=== PATIENT | male | born 1960 | race Asian ===

== ENCOUNTER 2017-03-04 11:10 | Observation (INO) | payer OTHER ==
[2017-03-04] MEDS ORDERED: ONDANSETRON 4 MG/2 ML VIAL IVP STA (11:28)
[2017-03-04] MEDS ORDERED: SODIUM CHLORIDE 0.9% 1,000 ML IV ONE ×2 (11:30→12:18)
[2017-03-04] MEDS ORDERED: ONDANSETRON 4 MG/2 ML VIAL ONE (11:39)
--- NOTE | 2017-03-04 12:05 | ED Physician Documentation ---
PD HPI ABD PAIN - Stated complaint Stated Complaint: VOMITING/ABD PX - Chief complaint Chief Complaint: Abd Pain - History obtained from History obtained from: Patient - History of Present Illness Timing - onset: Last night Timing - duration: Hours (12) Timing - details: Abrupt onset, Still present Quality: Cramping, Aching, Fullness/distended, Pain Location: Epigastric, Other (upper abd) Radiation: No: Chest, Lower back, Upper back Improved by: Vomiting. No: Position Worsened by: Eating, Palpation. No: Position Associated symptoms: Nausea, Vomiting, Loss of appetite. No: Fever, Hematemesis , Diarrhea, Constipation, Near syncope / syncope Similar symptoms before: Has not had sx before Recently seen: Not recently seen Review of Systems Constitutional: denies: Fever, Chills Nose: denies: Rhinorrhea / runny nose, Congestion Throat: denies: Sore throat Cardiac: denies: Chest pain / pressure, Palpitations Respiratory: denies: Dyspnea, Cough, Wheezing GI: reports: Abdominal Pain, Nausea, Vomiting. denies: Diarrhea, Hematemesis, Bloody / black stool : denies: Dysuria Skin: denies: Rash Musculoskeletal: denies: Neck pain, Back pain Neurologic: reports: Generalized weakness. 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 : None Psych: None Other Past Medical History: gout - Past Surgical History Past Surgical History: Yes General: Other (inguinal hernia repair remote past) - Present Medications Home Medications: Ambulatory Orders Medication Instructions Recorded Confirmed No Known Home Medications [No 03/04/17 03/04/17 Known Home Medications] - Allergies Allergies/Adverse Reactions: Allergies Allergy/AdvReac Type Severity Reaction Status Date / Time No Known Drug Allergies Allergy Verified 05/07/15 21:47 - Social History Does the pt smoke?: No Smoking Status: Never smoker Does the pt drink ETOH?: No Does the pt have substance abuse?: No - Family History Family history: reports: Non contributory - Immunizations Immunizations are current?: Yes - POLST Patient has POLST: No PD ED PE NORMAL - Vitals Vital signs reviewed: Yes - General General: Alert and oriented X 3, Well developed/nourished, Other (does appear uncomfortable. ) - HEENT HEENT: PERRL (nonicteric), Pharynx benign - Neck Neck: Supple, no meningeal sign, No adenopathy - Cardiac Cardiac: RRR, No murmur - Respiratory Respiratory: Clear bilaterally - Abdomen Abdomen: No organomegaly, Other (some fullness of abdomen upper abd, with epigastric and upper abd tenderness (negative [place] signs though). Lower abd not tender. ). No: Normal bowel sounds (slightly increased) - Male Male : Other (no inguinal hernias nor scrotal tenderness. ) - Rectal Rectal: Deferred - Back Back: No CVA TTP - Derm Derm: Normal color - Extremities Extremities: No deformity, Normal ROM s pain, No edema, No calf tenderness / cord - Neuro Neuro: Alert and oriented X 3, No motor deficit, Normal speech - Psych Psych: Normal mood, Normal affect Results - Vitals Vitals: Vital Signs - 24 hr 03/04/17 03/04/17 03/04/17 11:14 12:44 14:05 Temperature 35.3 C L Heart Rate 65 65 66 Respiratory 18 18 18 Rate Blood Pressure 152/94 H 129/83 H 140/75 H O2 Saturation 99 97 97 03/04/17 15:04 Temperature Heart Rate 68 Respiratory 18 Rate Blood Pressure 136/82 H O2 Saturation 97 Oxygen O2 Source Room air - Labs Labs: Laboratory Tests 03/04/17 03/04/17 03/04/17 13:38 13:38 15:13 WBC 20.0 H RBC 4.65 L Hgb 14.2 Hct 43.4 MCV 93.4 MCH 30.6 MCHC 32.7 RDW 14.3 Plt Count 181 MPV 8.7 Neut # 16.9 H Lymph # 1.9 [place] # 1.1 H Eos # 0.1 Baso # 0.1 Absolute Nucleated RBC 0.00 Nucleated RBCs 0.0 Sodium 138 Potassium 4.2 Chloride 106 Carbon Dioxide 26 Anion Gap 6.0 BUN 14 Creatinine 0.9 Estimated GFR (MDRD) 87 L Glucose 105 H Lactic Acid 1.3 Calcium 8.2 L Total Bilirubin 0.8 AST 23 ALT 22 Alkaline Phosphatase 45 Total Protein 6.8 Albumin 3.9 Globulin 2.9 Albumin/Globulin Ratio 1.3 Lipase 25 - Rads (name of study) abd/pelvic CT Radiology: Prelim report reviewed (Small bowel enteritis with partial SBO. NO free fluid nor perforation) PD MEDICAL DECISION MAKING - ED course Complexity details: re-evaluated patient (feeling less pain with meds. Still upper abd tender with mild distension. Awaiting CT. ), considered differential ( Labs to look for pancreas/liver, he had abd pain and vomiting with some fullness , so consider obstruction or perforation. Will get CT. ), d/w patient, d/w business systems consultant (Dr. Nicholson, Surgery, who saw patient and CT and referred to medicine, then Dr. Cheema, Hospitalist.) Departure - Departure Disposition: 66 [facility] DC/Xfer Clinical Impression: Partial small bowel obstruction, Enteritis Abdominal pain Qualifiers: Abdominal location: upper abdomen, unspecified Qualified Code(s): R10.10 - Upper abdominal pain, unspecified Vomiting Qualifiers: Vomiting type: unspecified Vomiting Intractability: non-intractable Nausea presence: with nausea Qualified Code(s): R11.2 - Nausea with vomiting, unspecified Condition: Stable Record reviewed to determine appropriate education?: Yes Discharge Date/Time: 03/04/17 16:07
[2017-03-04] MEDS ORDERED: HYDROmorphone 1 MG/ML SYRINGE IVP STA (12:17)
[2017-03-04] MEDS ORDERED: HYDROmorphone 1 MG/ML SYRINGE ONE (12:32)
[2017-03-04 13:48] LABS: BASOPHILS # (AUTO) 0.1 10^3/uL (0.0-0.1); BASOPHILS % (AUTO) 0.5 %; EOSINOPHILS # (AUTO) 0.1 10^3/uL (0.0-0.7); EOSINOPHILS % (AUTO) 0.5 %; HCT - HEMATOCRIT 43.4 % (42.0-52.0); HGB - HEMOGLOBIN 14.2 g/dL (14.0-18.0); LYMPHOCYTES # (AUTO) 1.9 10^3/uL (1.5-3.5); LYMPHOCYTES % (AUTO) 9.3 %; MEAN CORPUSCULAR HEMOGLOBIN 30.6 pg (27.0-31.0); MEAN CORPUSCULAR HGB CONC 32.7 g/dL (32.0-36.0); MEAN CORPUSCULAR VOLUME 93.4 fL (80.0-94.0); MEAN PLATELET VOLUME 8.7 fL (7.4-11.4); MONOCYTES # (AUTO) 1.1 10^3/uL (0.0-1.0); MONOCYTES % (AUTO) 5.3 %; NEUTROPHILS # (AUTO) 16.9 10^3/uL (1.5-6.6); NEUTROPHILS % (AUTO) 84.4 %; RED BLOOD COUNT 4.65 10^6/uL (4.70-6.10); RED CELL DISTRIBUTION WIDTH 14.3 % (12.0-15.0)
[2017-03-04 13:58] LABS: ALBUMIN/GLOBULIN RATIO 1.3 (1.0-2.2); BILIRUBIN,TOTAL 0.8 mg/dL (0.2-1.0); CALCIUM 8.2 mg/dL (8.5-10.3); CREATININE 0.9 mg/dL (0.6-1.2); POTASSIUM 4.2 mmol/L (3.5-5.0); TOTAL PROTEIN 6.8 g/dL (6.7-8.2)
[2017-03-04] MEDS ORDERED: IOPAMIDOL-300 100 ML VIAL IVP ONE (14:36)
--- NOTE | 2017-03-04 14:54 | CT Preliminary Report ---
Exam: CT Abdomen/Pelvis W/ IMPRESSION: 1. There is mildly dilated left abdomen small bowel with associated mesenteric edema. There is a smal l amount of free fluid within the paracolic gutters. Findings are suspicious for partial small bowel obstruction. Differential consideration would be enteritis. 2. No acute solid abdominal organ abnormalities are seen. [facility] SITE ID: [id number]
--- NOTE | 2017-03-04 14:56 | CT Report ---
EXAM: CT ABDOMEN AND PELVIS EXAM DATE: 03/04/2017 02:34 PM. CLINICAL HISTORY: Upper abd pain, distention since last night/ vomit. COMPARISONS: None. TECHNIQUE: Routine helical CT imaging was performed through the abdomen and pelvis. IV contrast: Yes. Enteric contrast: No. Reconstructions: Coronal and sagittal. In accordance with CT protocol optimization, one or more of the following dose reduction techniques w ere utilized for this exam: automated exposure control, adjustment of mA and/or KV based on patient s ize, or use of iterative reconstructive technique. FINDINGS: Lung Bases: Unremarkable. Liver: Normal. No masses. Gallbladder/Bile Ducts: Unremarkable. Spleen: Normal. Pancreas: Normal. Adrenal Glands: Normal. Kidneys: Rounded hypodensities within the kidneys likely represent cysts. No acute renal abnormalitie s are seen. Peritoneal Cavity/Bowel: Stomach demonstrates no acute abnormalities. There is mildly dilated small b owel within the left abdomen. There is mild adjacent mesenteric edema. No discrete transition point t o decompressed small bowel. The colon demonstrates no acute abnormalities. There are scattered coloni c diverticula. There are no enlarged mesenteric or retroperitoneal lymph nodes. There is some free fl uid within the right paracolic gutter. No intraperitoneal free air. The appendix is well visualized a nd normal. Pelvic Organs: Normal. The bladder and visualized pelvic organs are within normal limits. Vasculature: No aneurysms or other significant abnormality. Bones: No acute bony abnormalities are seen. Other: None. IMPRESSION: 1. There is mildly dilated left abdomen small bowel with associated mesenteric edema. There is a smal l amount of free fluid within the paracolic gutters. Findings are suspicious for partial small bowel obstruction. Differential consideration would be enteritis. 2. No acute solid abdominal organ abnormalities are seen. [facility] Referring Provider Line: [phone] SITE ID: [id number]
[2017-03-04] MEDS ORDERED: ONDANSETRON 4 MG/2 ML VIAL IVP PRN (15:38)
[2017-03-04] MEDS ORDERED: ACETAMINOPHEN 325 MG TABLET PO PRN (15:38)
[2017-03-04] MEDS ORDERED: SODIUM CHLORIDE FLUSH 0.9% 10 ML SYRINGE IVP PRN (15:38)
[2017-03-04] MEDS: SODIUM CHLORIDE 0.9% 1,000 ML IV SCH (16:43)
--- NOTE | 2017-03-04 18:43 | CONSULTATION NOTE ---
Surgery Consult - Admit Date Hospital Admission Date: 03/04/17 - Consult Date Consult Date: 03/04/17 Requesting Provider: ED attending - Home Meds/Allergies Home Medications: Patient History Medication Instructions Recorded Confirmed No Known Home Medications [No 03/04/17 03/04/17 Known Home Medications] Allergies/Adverse Reactions: Allergies Allergy/AdvReac Type Severity Reaction Status Date / Time No Known Drug Allergies Allergy Verified 05/07/15 21:47 - Consultation Note Consultation Note: PD HPI ABD PAIN - Stated complaint Stated Complaint: VOMITING/ABD PX - Chief complaint Chief Complaint: Abd Pain - History obtained from History obtained from: Patient - History of Present Illness 56 yo male relates a 1 day hx of nausea and vomiting followed by epigastric pain 8/10 non radiating, intermittent with normal bms. LBM today. Patient states he went to [employer] yesterday and was eating bul[place]ian food, then went to [employer] and had oysters & clam chowder and vomited later with abdominal pain so came to ED. Review of Systems Constitutional: denies: Fever, Chills Nose: denies: Rhinorrhea / runny nose, Congestion Throat: denies: Sore throat Cardiac: denies: Chest pain / pressure, Palpitations Respiratory: denies: Dyspnea, Cough, Wheezing GI: reports: Abdominal Pain, Nausea, Vomiting. denies: Diarrhea, Hematemesis, Bloody / black stool : denies: Dysuria Skin: denies: Rash Musculoskeletal: denies: Neck pain, Back pain Neurologic: reports: Generalized weakness. 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 : None Psych: None Other Past Medical History: gout - Past Surgical History Past Surgical History: Yes General: Right Inguinal hernia repair - Present Medications Home Medications: Ambulatory Orders Medication Instructions Recorded Confirmed No Known Home Medications [No 03/04/17 03/04/17 Known Home Medications] - Allergies Allergies/Adverse Reactions: Allergies Allergy/AdvReac Type Severity Reaction Status Date / Time No Known Drug Allergies Allergy Verified 05/07/15 21:47 - Social History Does the pt smoke?: No Smoking Status: Never smoker Does the pt drink ETOH?: No Does the pt have substance abuse?: No - Immunizations Immunizations are current?: Yes - POLST Patient has POLST: No PD ED PE NORMAL - Vitals Vital signs reviewed: Yes - General General: Alert and oriented X 3, Well developed/nourished, Other (does appear uncomfortable. ) - HEENT HEENT: PERRL (nonicteric), Pharynx benign - Neck Neck: Supple, no meningeal sign, No adenopathy - Cardiac Cardiac: RRR, No murmur - Respiratory Respiratory: Clear bilaterally - Abdomen Abdomen: + BS, soft, NT, ND, no rebound or guarding - Male Male : Other (no inguinal hernias nor scrotal tenderness. ) - Rectal Rectal: Deferred - Back Back: No CVA TTP - Derm Derm: Normal color - Extremities Extremities: No deformity, Normal ROM s pain, No edema, No calf tenderness / cord - Neuro Neuro: Alert and oriented X 3, No motor deficit, Normal speech - Psych Psych: Normal mood, Normal affect Results - Vitals Vitals: Vital Signs - 24 hr 03/04/17 03/04/17 03/04/17 11:14 12:44 14:05 Temperature 35.3 C L Heart Rate 65 65 66 Respiratory 18 18 18 Rate Blood Pressure 152/94 H 129/83 H 140/75 H O2 Saturation 99 97 97 03/04/17 15:04 Temperature Heart Rate 68 Respiratory 18 Rate Blood Pressure 136/82 H O2 Saturation 97 Oxygen O2 Source Room air - Labs Labs: Laboratory Tests 03/04/17 03/04/17 13:38 13:38 WBC 20.0 H RBC 4.65 L Hgb 14.2 Hct 43.4 MCV 93.4 MCH 30.6 MCHC 32.7 RDW 14.3 Plt Count 181 MPV 8.7 Neut # 16.9 H Lymph # 1.9 [place] # 1.1 H Eos # 0.1 Baso # 0.1 Absolute Nucleated RBC 0.00 Nucleated RBCs 0.0 Sodium 138 Potassium 4.2 Chloride 106 Carbon Dioxide 26 Anion Gap 6.0 BUN 14 Creatinine 0.9 Estimated GFR (MDRD) 87 L Glucose 105 H Calcium 8.2 L Total Bilirubin 0.8 AST 23 ALT 22 Alkaline Phosphatase 45 Total Protein 6.8 Albumin 3.9 Globulin 2.9 Albumin/Globulin Ratio 1.3 Lipase 25 03/04/17 CT scan ABD/P Partial obstruction vs enteritis A/P 56 yo male with abdominal pain, N/V with partial bowel obstruction vs enteritis Given recent hx of eating ou/ seafood/ hot weather, likely enteritis. Arthur non- surgical Recommend IV hydration. Primary medical team to manage.
[2017-03-04] MEDS: SODIUM CHLORIDE FLUSH 0.9% 10 ML SYRINGE IVP SCH (22:46)
[2017-03-05] MEDS: SODIUM CHLORIDE 0.9% 1,000 ML IV SCH (00:41)
[2017-03-05] MEDS: SODIUM CHLORIDE FLUSH 0.9% 10 ML SYRINGE IVP SCH (05:39)
[2017-03-05 05:47] LABS: CALCIUM 7.7 mg/dL (8.5-10.3); CREATININE 0.8 mg/dL (0.6-1.2); POTASSIUM 3.5 mmol/L (3.5-5.0)
[2017-03-05 05:55] LABS: BASOPHILS % (AUTO) 0.4 %; EOSINOPHILS # (AUTO) 0.2 10^3/uL (0.0-0.7); EOSINOPHILS % (AUTO) 3.3 %; HCT - HEMATOCRIT 38.4 % (42.0-52.0); HGB - HEMOGLOBIN 12.7 g/dL (14.0-18.0); LYMPHOCYTES # (AUTO) 1.8 10^3/uL (1.5-3.5); MEAN CORPUSCULAR HEMOGLOBIN 31.2 pg (27.0-31.0); MEAN CORPUSCULAR HGB CONC 33.2 g/dL (32.0-36.0); MEAN PLATELET VOLUME 9.1 fL (7.4-11.4); MONOCYTES # (AUTO) 0.5 10^3/uL (0.0-1.0); MONOCYTES % (AUTO) 7.3 %; NEUTROPHILS # (AUTO) 4.2 10^3/uL (1.5-6.6); RED BLOOD COUNT 4.08 10^6/uL (4.70-6.10); RED CELL DISTRIBUTION WIDTH 14.2 % (12.0-15.0); UNCORRECTED WHITE BLOOD COUNT 6.8 x10^3/uL; WHITE BLOOD COUNT 6.8 x10^3/uL (4.8-10.8)
--- NOTE | 2017-03-05 07:20 | HISTORY & PHYSICAL EXAMINATION ---
Chief Complaint - Chief Complaint Chief Complaint: PLEASE SEE DICTATED NOTE History - Past Medical History Cardiovascular: reports: Hypertension, High cholesterol Respiratory: reports: None Neuro: reports: None Endocrine/Autoimmune: reports: None GI: reports: None PATIENT BILLER: reports: None : reports: None Psych: reports: None MRSA Hx?: No Other Past Medical History: gout - Past Surgical History General: reports: Other (inguinal hernia repair remote past) - POLST Patient has POLST: No Meds/Allgy - Home Medications Home Medications: Ambulatory Orders Medication Instructions Recorded Confirmed No Known Home Medications [No 03/04/17 03/04/17 Known Home Medications] - Allergies Allergies/Adverse Reactions: Allergies Allergy/AdvReac Type Severity Reaction Status Date / Time No Known Drug Allergies Allergy Verified 05/07/15 21:47 Exam - Vital Signs Vital Signs: Vital Signs x48h Temp Pulse Resp BP Pulse Ox 03/05/17 05:00 36.7 C 71 16 107/62 96 03/04/17 23:47 36.8 C 68 14 111/68 98 Conclusion/Plan - Lab Results Lab results reviewed: Yes Fish Bones: 03/05/17 05:29 03/05/17 05:29 Issues/Core Measures - Anticipated LOS Anticipated Stay Length: Less than 2 midnights - DVT/VTE - Prophylaxis VTE/DVT Device ordered at admit?: No
--- NOTE | 2017-03-05 08:18 | Discharge Plan ---
Discharge Plan Disposition: 01 Home, Self Care Condition: Good Diet: Regular Activity Restrictions: No Restrictions Additional Instructions or Follow Up instructions: take fiber supplement daily. No Smoking: If you smoke, Please STOP! Call for help.
[2017-03-05 08:34] VITALS: BP 122/78
[2017-03-05] MEDS ORDERED: POLYETHYLENE GLYCOL 3350 17 GM PACKET PO SCH (09:00)
--- NOTE | 2017-03-05 11:27 | HISTORY & PHYSICAL EXAMINATION ---
CHIEF COMPLAINT: Abdominal pain, nausea and vomiting. HISTORY OF PRESENT ILLNESS: The patient is a 56-year-old male who presents with upper abdominal pain, nausea, and vomiting, which started after he ate a large meal on the night prior to admission. The patient reports abdominal pain was constant, he vomited multiple times. Denies hematemesis. The patient had difficulty sleeping due to persistent pain and continued to have nausea, vomiting the following morning. He denies radiation of pain. Nothing made pain better or worse. The patient states he ate out at [employer] and had soup, salad , and several oysters which his did not want to finish so he ate more than usual. The oysters were fried. The patient reports a firm bowel movement on the morning of admission that was difficult to pass. He had a colonoscopy in 2007 or 2008, his states due to rectal bleeding, and was treated with Miralax which he has since discontinued taking. The patient thinks he may have a hemorrhoid. The patient reports travel to the [facility] in December for 1 month. He denies having any GI symptoms prior to what brought him to the hospital today. PAST MEDICAL HISTORY: Hypercholesterolemia, hypertension listed although patient denies this, right inguinal hernia repair in the mid , colonoscopy in 2007 or 2008 that patient reports was normal. ALLERGIES: NO KNOWN DRUG ALLERGIES. MEDICATIONS: Cholesterol therapy prescribed, patient discontinued due to muscle pain. Vitamin D. fiber supplement - no longer taking SOCIAL HISTORY: The patient is . He denies tobacco or alcohol use. FAMILY HISTORY: Father of myocardial infarction and his mother has diabetes. REVIEW OF SYSTEMS: The patient reports a 10-pound weight loss in December on his visit to the [facility]. States he lost weight due to it being so hot he did not want to eat. He denies fatigue, fever, or night sweats. HEENT: Negative. CARDIOVASCULAR: Denies chest pain, palpitations. RESPIRATORY: Denies cough or cold symptoms. GI: See HPI. GENITOURINARY: Negative. MUSCULOSKELETAL: Negative. SKIN: Negative. NEUROLOGIC: Negative. PSYCHIATRIC: Denies sleep disturbance, denies anxiety or depression. ENDOCRINE: Negative. HEMATOLOGIC/LYMPH: Negative. PHYSICAL EXAMINATION: VITAL SIGNS: Temperature is 35.3, heart rate 65, blood pressure 152/94, respiratory rate is 18, oxygen saturation 99% on room air. GENERAL: The patient is a pleasant, well-developed, well-nourished appearing gentleman who appears stated age. He is alert, oriented, in no acute distress. HEENT: Pupils are equal, round, reactive to light. EOMI, anicteric, no nystagmus. Oropharynx no erythema or lesions. Mucous membranes slightly dry. NECK: Supple without adenopathy. HEART: Regular rate and rhythm. No murmurs, rubs, or gallops. LUNGS: Clear to auscultation bilaterally. No crackles, rhonchi, or wheeze. ABDOMEN: Tender in left upper quadrant and mid epigastric area. No rebound or guarding. Positive bowel tones. MUSCULOSKELETAL: No joint swelling or tenderness. SKIN: No rash or lesions. NEUROLOGIC: Face is symmetric, tongue is midline. No gross motor deficit. PSYCHIATRIC: Normal mood and affect. LABORATORY DATA: White blood count 20.0, hematocrit is 43.4, platelet count is 181. Sodium is 138, potassium is 4.2, BUN 14, creatinine 0.9, glucose is 105, liver function tests within normal limits, lipase is 25. CT abdomen and pelvic with contrast: Impression: Mildly dilated left abdomen small bowel with associated mesenteric edema. There is a small amount of free fluid within the paracolic gutters. Findings are suspicious for partial small bowel obstruction. Differential consideration would be enteritis. No acute solid , abdominal organ abnormalities are seen. CT was personally reviewed. The patient has stool throughout and a moderate amount in rectum. He also has solid appearing cyst on left kidney which is moderate to large in size. ASSESSMENT AND PLAN: The patient is a 56-year-old gentleman who presents with abdominal pain, nausea and vomiting. CT report suggests possible early small bowel obstruction versus enteritis. Clinically appears to have enteritis, possibly related to foodborne illness/large meal he ate prior to developing symptoms. 1. Gastroenteritis - suspect this is due to food borne illness. The patient developed acute onset abdominal pain, nausea and vomiting. No diarrhea, had firm bm this am, leads me to believe this is more likely enteritis than partial small bowel obstruction. He does have an elevated white blood count which I suspect is a leukemoid or stress reaction rather than a bacterial infectious process. He has no other sign or symptom of sepsis. Will treat with IV fluids, antiemetic, clear liquid diet, advance as tolerated, and repeat labs in the a.m. 2. Chronic constipation. Once the patient is tolerating clear liquid diet and advance of his diet without difficulty, will recommend daily fiber supplementation such as Miralax or Citrucel. 3. Deep venous thrombosis prophylaxis. Anticipate short stay, low risk. The patient will be admitted observation. He requires IV fluid, antiemetic, and monitoring for possible worsening of condition. MTDD
--- NOTE | 2017-03-09 10:32 | DISCHARGE SUMMARY ---
REASON FOR ADMISSION: Abdominal pain, nausea, and vomiting. DISCHARGE DIAGNOSES: 1. Gastroenteritis likely due to foodborne illness. 2. Chronic constipation. BRIEF HISTORY OF PRESENTATION: The patient presented with acute onset abdominal pain, nausea, vomiting, that started the night prior to admission after he ate a large meal. In the emergency department the patient was found to have a leukocytosis of 20,000, CT of his abdomen and pelvis suggested a partial small bowel obstruction and edema in the left upper quadrant. He was admitted for observation. HOSPITAL COURSE: Gastroenteritis and constipation. The patient was treated with IV fluids, antiemetics and clear liquid diet which he tolerated. His symptoms improved by the following morning and his leukocytosis had completely resolved. He did not receive the antibiotics. Pt's diet was advanced to regular which he tolerated. The patient was discharged in stable condition. No new medications. He was encouraged to continue taking fiber supplementation as previously prescribed. Followup with primary care provider as needed. OLEG
== END 2017-03-05 08:50 | disposition home or self-care (01) ==
LOC: ED 11:10 → MS 15:39
PROVIDERS: ADMIT Internal Medicine; ATTEND Internal Medicine
DX: K52.9 Noninfective gastroenteritis and colitis, unspecified (principal); K59.09 Other constipation; I10 Essential (primary) hypertension; E78.00 Pure hypercholesterolemia, unspecified
CPT/HCPCS: 36415; 74177; 80048; 80053; 83605; 83690; 85025; 96361; 96374; 96375; 99283; 99285; G0378; J1170; Q9967; 99284